=== PATIENT | female | born 2000 | race Caucasian/White ===

== ENCOUNTER 2021-06-25 07:56 | Day surgery (SDC) | payer BC ==
[~2021-06-25] VITALS: Ht 165.1 cm; Wt 52.8 kg
[2021-06-25] MEDS ORDERED: LEXAPRO20 MG PO (08:14)
--- NOTE | 2021-06-25 08:45 | NUR ---
Patient fainted whiled IV started. Was out for 10-15 seconds before returning to consiousness. Vomited shortly after. Mom at bedside. Wet rag applied to forehead, patient reclined in chair and states she feels okay. Dr. Marin notified and aware of situation.
[2021-06-25 09:14] VITALS: BP 109/73; PULSE 66; TEMP 97.9
[2021-06-25 09:55] VITALS: BP 97/49; PULSE 66; TEMP 97.9
--- NOTE | 2021-06-25 09:55 | NUR ---
Back from EGD/Colonoscopy. Alert and oriented. Ambulated from cart to chair with standby assist. VSS. Mother bedside
[2021-06-25 10:04] VITALS: BP 90/64; PULSE 63; TEMP 97.9
[2021-06-25 10:19] VITALS: BP 94/64; PULSE 61; TEMP 97.9
--- NOTE | 2021-06-25 10:19 | NUR ---
Discharge instructions given to pt/mother. INT discontinued intact.
== END 2021-06-25 12:58 | disposition home or self-care (01) ==
LOC: SDCO 07:56
PROVIDERS: Internal Medicine Gastroenterology
DX: K59.04 Chronic idiopathic constipation (principal); R19.5 Other fecal abnormalities; K20.90 Esophagitis, unspecified without bleeding; K21.9 Gastro-esophageal reflux disease without esophagitis; F32.A Depression, unspecified; F41.9 Anxiety disorder, unspecified; Z79.899 Other long term (current) drug therapy
CPT/HCPCS: J2704; J7120